=== PATIENT | female | born 1960 | race Caucasian/White ===

== ENCOUNTER 2019-01-28 16:38 | Emergency (ER) | payer MEDICAID ==
[2019-01-28] MEDS ORDERED: KETOROLAC 30 MG/ML VIAL IVP STA (17:45)
[2019-01-28] MEDS ORDERED: diphenhydrAMINE INJ 50 MG/ML VIAL IVP STA (17:45)
[2019-01-28] MEDS ORDERED: DEXAMETHASONE 10 MG/ML VIAL IVP STA (17:45)
[2019-01-28] MEDS ORDERED: METOCLOPRAMIDE 10 MG/2 ML VIAL IVP STA (17:45)
[2019-01-28] MEDS ORDERED: SODIUM CHLORIDE 0.9% 1,000 ML IV ONE (17:45)
--- NOTE | 2019-01-28 17:47 | ED Physician Documentation ---
PD HPI HEADACHE - Stated complaint Stated Complaint: HEADACHE - Chief complaint Chief Complaint: Neuro - History obtained from History obtained from: Patient - History of Present Illness Timing - onset: Other (This is a 58-year-old woman who is visiting locally. She has frequent headaches, history of migraines. She says she gets one about once a month. The last time she had to come to the ER for one was about 6 months ago. She had a gradual onset global headache associated with light sensitivity and vomiting this morning that was not responsive to Excedrin at home. She states that in the past when she has had to come to the emergency department for headaches to give her a "cocktail of IV medications" that helps. She denies fevers or neck stiffness.) Review of Systems Ten Systems: 10 systems reviewed and negative Constitutional: denies: Fever, Chills Cardiac: denies: Chest pain / pressure, Palpitations Respiratory: denies: Dyspnea, Cough PD PAST MEDICAL HISTORY - Present Medications Home Medications: Ambulatory Orders Medication Instructions Recorded Confirmed Quetiapine Fumarate [Seroquel] 300 mg PO DAILY 01/28/19 01/28/19 SUMAtriptan [Imitrex] 25 mg PO BID PRN #10 tablet 01/28/19 lamoTRIgine [LaMICtal] 200 mg PO DAILY 01/28/19 01/28/19 - Allergies Allergies/Adverse Reactions: Allergies Allergy/AdvReac Type Severity Reaction Status Date / Time Penicillins Allergy Rash Verified 01/28/19 16:46 PD ED PE NORMAL - Vitals Vital signs reviewed: Yes - General General: Alert and oriented X 3, Other (Uncomfortable and light sensitive) - HEENT HEENT: PERRL, EOMI - Neck Neck: Supple, no meningeal sign, No bony TTP - Neuro Neuro: Alert and oriented X 3, train driver 2-12 intact Eye Opening: Spontaneous Motor: Obeys Commands Verbal: Oriented GCS Score: 15 - Psych Psych: Normal mood, Normal affect Results - Vitals Vitals: Vital Signs - 24 hr 01/28/19 01/28/19 16:44 19:50 Temperature 36.4 C L 36.9 C Heart Rate 90 94 Respiratory 20 16 Rate Blood Pressure 151/98 H 169/94 H O2 Saturation 98 98 Oxygen O2 Source Room air PD MEDICAL DECISION MAKING - ED course ED course: The headache is gradual in onset and similar to prior headaches. As such I doubt subarachnoid hemorrhage. There are no infectious symptoms such as fever or stiff neck to make me suspect meningitis. No carbon monoxide exposure by history. Initially she was administered Reglan, Benadryl, Toradol, dexamethasone, and IV fluids. On recheck she had really no relief and after that was given Haldol IV with minimal relief and then subcutaneous Imitrex with relief. Departure - Departure Disposition: 01 Home, Self Care Clinical Impression: Migraine Qualifiers: Migraine type: with aura Status migrainosus presence: with status migrainosus Intractability: not intractable Qualified Code(s): G43.101 - Migraine with aura, not intractable, with status migrainosus Condition: Good Record reviewed to determine appropriate education?: Yes Instructions: Imitrex, ED Headache Migraine Prescriptions: SUMAtriptan [Imitrex] 25 mg PO BID PRN #10 tablet PRN Reason: Headache Comments: Call your doctor to arrange a follow-up appointment, make the next available appointment. In the interim, return anytime if worse or if new symptoms devel op. Your blood pressure was elevated today on check into the emergency department. This does not mean that you have hypertension, it is a common phenomenon to come to the emergency department and have elevated blood pressure. I recommend that you see your primary care physician within the week to have it rechecked when you are feeling better.
[2019-01-28] MEDS ORDERED: HALOPERIDOL 5 MG/ML VIAL IVP ONE (18:36)
[2019-01-28] MEDS ORDERED: SUMAtriptan 6 MG/0.5 ML VIAL SUBQ STA (19:18)
[2019-01-28 20:43] VITALS: BP 158/91
== END 2019-01-28 20:44 | disposition home or self-care (01) ==
LOC: ED 16:38
DX: G43.101 Migraine with aura, not intractable, with status migrainosus (principal); R03.0 Elevated blood-pressure reading, without diagnosis of hypertension
CPT/HCPCS: 96361; 96372; 96374; 96375; 99283; 99284; J1200; J2765

== ENCOUNTER 2019-01-31 21:33 | Emergency (ER) | payer MEDICAID ==
[2019-01-31] MEDS ORDERED: SUMAtriptan 6 MG/0.5 ML VIAL SUBQ STA (22:20)
[2019-01-31] MEDS ORDERED: PROCHLORPERAZINE 10 MG/2 ML VIAL IVP STA (23:05)
[2019-01-31] MEDS ORDERED: KETOROLAC 30 MG/ML VIAL IVP STA (23:05)
[2019-01-31] MEDS ORDERED: SODIUM CHLORIDE 0.9% 1,000 ML IV ONE (23:06)
[2019-01-31] MEDS ORDERED: DEXAMETHASONE 10 MG/ML VIAL IVP STA (23:06)
--- NOTE | 2019-01-31 23:27 | ED Physician Documentation ---
PD HPI HEADACHE - Stated complaint Stated Complaint: NOVA - Chief complaint Chief Complaint: Neuro - History obtained from History obtained from: Patient - History of Present Illness Timing - onset: Today Timing - onset during: Rest Timing - duration: Days (1) Timing - details: Gradual onset Pain level max: 10 Pain level now: 10 Location: Global Quality: Throbbing, Aching Associated symptoms: Nausea. No: Fever, Stiff neck, Vomiting, Weakness, Numbness, Syncope, Seizure Improved by: Rest, Dark room Worsened by: Light, Noise Contributing factors: No: Anticoagulated, Possible carbon monoxide, Hypertension, Recent illness, Trauma Similar symptoms before: Diagnosis (Chronic migraine headaches) Recently seen: Emergency Dept (3 days ago for similar headache. Took Imitrex today without relief) Review of Systems Ten Systems: 10 systems reviewed and negative Constitutional: denies: Fever, Chills Ears: denies: Ear pain Nose: denies: Rhinorrhea / runny nose, Congestion Respiratory: denies: Cough GI: denies: Nausea, Vomiting, Diarrhea Skin: denies: Rash Musculoskeletal: denies: Neck pain, Back pain Neurologic: denies: Focal weakness, Numbness, Seizure, Confused, Head injury, LOC PD PAST MEDICAL HISTORY - Past Medical History Past Medical History: Yes Cardiovascular: None Respiratory: None Neuro: Headaches, Migraines Endocrine/Autoimmune: None GI: None TANK TRUCK DRIVER: None : None HEENT: None Psych: Bipolar disorder Musculoskeletal: None Derm: None - Past Surgical History Past Surgical History: Yes Ortho: Arthroscopic surgery, Other /TANK TRUCK DRIVER: Tubal ligation - Present Medications Home Medications: Ambulatory Orders Medication Instructions Recorded Confirmed Quetiapine Fumarate [Seroquel] 300 mg PO DAILY 01/28/19 01/28/19 SUMAtriptan [Imitrex] 25 mg PO BID PRN #10 tablet 01/28/19 lamoTRIgine [LaMICtal] 200 mg PO DAILY 01/28/19 01/28/19 - Allergies Allergies/Adverse Reactions: Allergies Allergy/AdvReac Type Severity Reaction Status Date / Time Penicillins Allergy Rash Verified 01/31/19 21:40 - Social History Does the pt smoke?: No Smoking Status: Never smoker Does the pt drink ETOH?: No Does the pt have substance abuse?: Yes - Immunizations Immunizations are current?: Yes - POLST Patient has POLST: No PD ED PE NORMAL - Vitals Vital signs reviewed: Yes - General General: Alert and oriented X 3, Well developed/nourished, Other (In a darkened room covering her eyes) - HEENT HEENT: Atraumatic, PERRL, EOMI, Ears normal, Moist mucous membranes, Pharynx benign - Neck Neck: Supple, no meningeal sign - Cardiac Cardiac: RRR, Strong equal pulses - Respiratory Respiratory: No respiratory distress, Clear bilaterally - Abdomen Abdomen: Soft, Non tender, Non distended - Back Back: No spinal TTP - Derm Derm: Warm and dry - Neuro Neuro: Alert and oriented X 3, staff electrical engineer 2-12 intact, No motor deficit, No sensory deficit, Normal speech Eye Opening: Spontaneous Motor: Obeys Commands Verbal: Oriented GCS Score: 15 - Psych Psych: Normal mood, Normal affect Results - Vitals Vitals: Vital Signs - 24 hr 01/31/19 01/31/19 01/31/19 21:36 21:39 23:42 Temperature 36.1 C L Heart Rate 99 99 81 Respiratory 16 16 17 Rate Blood Pressure 150/106 H 150/106 H 182/99 H O2 Saturation 98 98 99 Oxygen O2 Source Room air PD MEDICAL DECISION MAKING - ED course Complexity details: reviewed old records, re-evaluated patient, considered differential, d/w patient ED course: 58-year-old female with her usual migraine headache. Given Imitrex, and this did not help. An IV was then placed, given Toradol and Compazine. She is driving tonight. She was also given IV fluids and dexamethasone. No evidence of subarachnoid hemorrhage, tumor. She was also given IV ofirmev which resolved her headache. Patient counseled regarding signs and symptoms for which I believe and urgent re-evaluation would be necessary. Patient with good understanding of and agreement to plan and is comfortable going home at this time This document was made in part using voice recognition software. While efforts are made to proofread this document, sound alike and grammatical errors may occur. Departure - Departure Disposition: 01 Home, Self Care Clinical Impression: Migraine Qualifiers: Migraine type: unspecified Status migrainosus presence: without status migrainosus Intractability: not intractable Qualified Code(s): G43.909 - Migraine, unspecified, not intractable, without status migrainosus Condition: Good Instructions: ED Headache Migraine Follow-Up: MALINI GARCIA NP [Primary Care Provider] - Within 1 week Comments: Follow-up with your doctor for further care. Return if you worsen. This should continue to improve as the medications work.
[2019-02-01] MEDS ORDERED: ACETAMINOPHEN 1,000 MG/100 ML 100 ML IV STA
[2019-02-01 01:17] VITALS: BP 154/78
== END 2019-02-01 01:17 | disposition home or self-care (01) ==
LOC: ED 21:33
DX: G43.909 Migraine, unspecified, not intractable, without status migrainosus (principal)
CPT/HCPCS: 96361; 96365; 96372; 96375; 99284; J0131